=== PATIENT | female | born 1980 | race Caucasian/White ===

== ENCOUNTER 2020-01-17 15:09 | Emergency (ER) | payer SELFPAY ==
[2020-01-17 15:11] VITALS: BP 131/91; PULSE 96; RESP 18; TEMP 37.2; O2SAT 100; BMI 28.3
--- NOTE | 2020-01-17 15:13 | NURSING ---
NO OLD EKGS
--- NOTE | 2020-01-17 15:34 | EKG12_ITS ---
Test Reason : Blood Pressure : / mmHG Vent. Rate : 097 BPM Atrial Rate : 097 BPM P-R Int : 146 ms QRS Dur : 076 ms QT Int : 358 ms P-R-T Axes : 046 -19 028 degrees QTc Int : 454 ms Normal sinus rhythm Low voltage QRS Borderline ECG Confirmed by SAUD CARRERA ([id number]), assistant film editor SOPHIE SANTOS ([id number]) on 01/19/2020 9:41:58 AM Referred By: AZAR Confirmed By:SAUD CARRERA
--- NOTE | 2020-01-17 15:35 | CT_ITS ---
STUDY: CTA CHEST REASON FOR EXAM: Female, 39 years old. Chest pain radiating into back. RADIATION DOSAGE (If Supplied By Facility): CTDIvol = ( 15.51 ) mGy, DLP = ( 431.51 ) mGycm TECHNIQUE: The examination was performed with the intravenous administration of 75mL Isovue 370. Post-processing of the angiographic images was performed, with multiplanar reformation and 3D reconstruction. Individualized dose optimization techniques were used for this CT. COMPARISON: None. FINDINGS: Normal enhancement of the main pulmonary artery and right and left pulmonary arteries. Normal enhancement of the bilateral peripheral pulmonary arteries. There is no demonstrated pulmonary embolism. Normal thoracic aorta and visualized great vessels. There is no demonstrated aortic dissection. Normal heart and pericardium. Normal mediastinum. Normal hilar regions. Normal visualized trachea and bronchi. The lungs are well expanded. Bibasilar atelectasis is present. There is no consolidation. Normal pleura. Normal chest wall structures. Normal osseous structures. Normal visualized upper abdomen. CT/CTA Chest W/WO Contrast IMPRESSION: Normal CTA chest examination, without a demonstrated pulmonary embolism or arterial dissection. Electronically Signed: Rivera Stevens, at 16:50 EST Tel , Service support ,
--- NOTE | 2020-01-17 15:37 | ED.VISSUMM ---
- ER Visit Summary Date of Service: 01/17/20 Chief Complaint: [Chest pain] History of Present Illness: The patient is a 39 F [presents to the emergency department complaint of chest pain that started 1 month ago. Patient states that she has been seen at [facility] twice for the same complaint. Patient initially had an ultrasound of her gallbladder and was told it was normal. She was told she might have an ulcer or bad gallbladder. She supposedly was referred to a global coordinator but when they called they got a general practitioner. Patient states that she is having hard time sleeping at night and has been sleeping in a chair. Pain is worse with deep breath and movement. At times the pain will radiate to her right shoulder posteriorly. Patient denies recent travel or surgery although years ago she did have a DVT and was on Lovenox for 1 month. She is currently not anticoagulated. She denies recent travel or surgery. She denies recent illness. She denies fever. Food does not seem to make her pain worse.] Patient states that the pain is worse when she tries to push herself up with her arms. Pain is worse with deep breath and movement. Physical Examination: [HEENT-PERRLA, EOMI. Cranial nerves II through XII grossly intact. TMs clear. Mucous membranes moist. No adenopathy. Cardiovascular-regular rate and rhythm without murmur or ectopy Lungs-clear to auscultation, chest wall stable without crepitus or subcu emphysema Abdomen-normoactive bowel sounds, soft, nontender, no rebound or rigidity, no peritoneal signs. Extremities-intact ?4, normal range of motion, normal pulses, atraumatic] Test Results: [EKG obtained on arrival showed a sinus rhythm with a ventricular rate of 97 bpm with low voltage noted.] CBC with it showing of 8.2, hemoglobin 12.7, hematocrit 39, platelets 310. Chemistries unremarkable. LFTs were normal. Lipase was 70. Troponin was less than 0.015. Sed rate was 10. CTA of the chest showed no evidence for PE or dissection and essentially was normal. Emergency Department Course and Treatment: [She was medicated with Dilaudid 1 mg IV. Patient also given a GI cocktail. She had relief with the Dilaudid but the GI cocktail did not seem to help at all.] Treatment Plan: [Patient will be given referral to primary care physician locally for follow-up. Etiology of her chest pain unclear although I suspect musculoskeletal in origin. Patient does have history of rheumatoid arthritis.] Patient given a prescription for prednisone as well as Percocet for pain. Disposition: [Discharged home in stable condition] Impression: [Chest wall pain] This note was generated with [employer] dictation software. It may contain incorrect words, spelling, and punctuation that were not noted in review of the chart prior to signing ED Disposition - Plan for ED Patient: Referrals: Care Physician,No Primary [Primary Care Provider] -
[2020-01-17] MEDS: HYDROmorphone 1 MG/ML Syringe IV (15:45)
[2020-01-17] MEDS: Ondansetron 4 MG/2 ML Vial IV (15:45)
[2020-01-17] MEDS: 0.9% Normal Saline 1,000 ML 150 ML IV (15:46)
[2020-01-17 16:02] LABS: Absolute Lymphocyte Count 2.63 X10^3/uL (0.83-4.51); Absolute Neutrophil Count 4.6 X10^3/uL (2.0-7.7); Basophil# 0.04 X10^3/uL; Basophil% 0.5 % (0-1); Eosinophil# 0.34 X10^3/uL; Eosinophils% 4.1 % (0-5); Hemoglobin 12.7 g/dL (12.0-15.0); Lymphocyte # 2.63 X10^3/ul (4.0); Lymphocyte % 31.9 % (19-41); Mean Corp Hgb Conc 32.6 g/dL (32-36); Mean Corpuscular Hgb 30.2 pg (27.0-32.0); Mean Corpuscular Volume 92.9 fL (81-99); Mean Platelet Vol. 9.1 fl (6.2-12.0); Monocyte# 0.64 X10^3/uL; Monocyte% 7.8 % (0-10); NRBC Flagged by Analyzer 0 % (0-5); Neutrophil # 4.56 X10^3/uL (2.7-7.7); Neutrophil % 55.3 % (47-70); Platelet Count 310 K/mm3 (150-450); RBC Distribution Width CV 13.2 % (11.6-14.6); RBC Distribution Width SD 45.1 fl (35.1-43.9); White Blood Count 8.2 K/mm3 (4.4-11.0)
[2020-01-17 16:08] LABS: Erythrocyte Sedimentation Rate 10 mm/hr (0-20)
[2020-01-17 16:18] LABS: ALB/GLOB Ratio 0.9 RATIO (0.9-2.4); AST(SGOT) 18 U/L (15-37); Alanine Aminotransfer ALT/SGPT 25 U/L (13-56); Albumin, Serum 3.6 g/dL (3.2-5.0); Alkaline Phosphatase 49 U/L (45-117); Anion Gap 4 (5-15); BUN 9 mg/dL (7-18); BUN/Creat Ratio 15.3 RATIO (10-20); Calcium,Total 9.4 mg/dL (8.5-10.1); Chloride 106 mmol/L (98-107); Creatinine, Serum 0.59 mg/dL (0.55-1.02); EST Glomerular Filtration Rate 120 mL/min (>60); Est Glom Filt Rate - Afr Amer 145 mL/min (>60); Globulin 4.1 g/dL (2.2-4.2); Glucose 91 mg/dL (74-106); Lipase 70 U/L (73-393); Potassium 4.4 mmol/L (3.5-5.1); Protein, Total 7.7 g/dL (6.4-8.2); Sodium Level 140 mmol/L (136-145)
[2020-01-17 16:41] VITALS: BP 120/76; PULSE 98; RESP 22; O2SAT 96
[2020-01-17] MEDS: Mag Hydrox/Al Hydrox/Simeth 30 ML UDC PO (16:55)
--- NOTE | 2020-01-17 17:20 | ED.DEP ---
ED Disposition - Plan for ED Patient: Instructions: CHEST WALL PAIN, Costochondritis Prescriptions: Prednisone [Deltasone] 20 mg PO BID #10 tab Prescription Printed Oxycodone HCl/Acetaminophen [Percocet 5/325] 1 tab PO Q6H PRN PRN 5 Days #20 tab PRN Reason: Pain Score 4-10/10 Prescription Printed Referrals: Care Physician,No Primary [Primary Care Provider] - Martin Loaiza MD [STAFF PHYSICIAN] - 5-7 Days
[2020-01-17 17:27] VITALS: BP 129/97; PULSE 84; RESP 18; O2SAT 100
[2020-01-17 17:34] VITALS: BP 129/74; PULSE 84; RESP 16; O2SAT 98
== END 2020-01-17 17:34 | disposition home or self-care (01) ==
PROVIDERS: Emergency Provider Emergency Medicine
DX: R07.89 Other chest pain (principal); M06.9 Rheumatoid arthritis, unspecified; Z72.0 Tobacco use; Z86.718 Personal history of other venous thrombosis and embolism; Z79.899 Other long term (current) drug therapy
CPT/HCPCS: 71275; 80053; 83690; 84484; 85025; 85652; 93005; 96361; 96374; 96375; 99284; J7030; Q9967; A4216; J2405